=== PATIENT | male | born 1990 | race Caucasian/White ===

== ENCOUNTER 2016-08-09 23:10 | Emergency (ER) ==
[2016-09-23] MEDS ORDERED: NO MEDICATIONS (22:59)
== END 2016-08-10 00:13 | disposition left against medical advice (07) ==
LOC: SED 23:10
DX: Z53.21 Procedure and treatment not carried out due to patient leaving prior to being seen by health care provider (principal)

== ENCOUNTER 2016-09-23 23:24 | Emergency (ER) | payer OTHER ==
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
[~2016-09-23 23:24] MED LIST: NO MEDICATIONS
== END 2016-09-24 00:50 | disposition home or self-care (01) ==
LOC: SED 23:24
DX: S00.93XA Contusion of unspecified part of head, initial encounter (principal); S50.11XA Contusion of right forearm, initial encounter; Z23 Encounter for immunization; F17.210 Nicotine dependence, cigarettes, uncomplicated; Y04.2XXA Assault by strike against or bumped into by another person, initial encounter; Y92.009 Unspecified place in unspecified non-institutional (private) residence as the place of occurrence of the external cause
CPT/HCPCS: 70450; 71010; 73080; 73090; 73110; 73130; 73562; 90471; 90715; 99284